=== PATIENT | female | born 1965 | race Caucasian/White ===

== ENCOUNTER 2020-12-04 14:54 | Emergency (ER) ==
[2020-12-04] MEDS ORDERED: Boostrix 0.5 ML (Tdap) VIAL ONE (16:06)
[2020-12-04] MEDS ORDERED: Lidocaine 1% 20 ML MDV ONE (16:06)
[2020-12-04] MEDS ORDERED: Oseltamivir 75 MG CAP ONE (16:06)
[2020-12-04] MEDS ORDERED: Bacitracin 1 PK ONE (16:26)
--- NOTE | 2020-12-04 17:31 | RAD ---
RIGHT THUMB THREE VIEWS: 12/04/20 HISTORY: Right thumb injury. FINDINGS: Some mild arthritic changes present. There is no signs of fracture or dislocation. IMPRESSION: No evidence of fracture. POS: [facility]
== END 2020-12-04 17:15 | disposition home or self-care (01) ==
LOC: MADERS 14:54
DX: S61.011A Laceration without foreign body of right thumb without damage to nail, initial encounter (principal); Z79.899 Other long term (current) drug therapy; W23.0XXA Caught, crushed, jammed, or pinched between moving objects, initial encounter
CPT/HCPCS: 12002; 90471; 90715

== ENCOUNTER 2020-12-11 10:58 | Emergency (ER) | payer OTHER | END 2020-12-11 11:39 | disposition home or self-care (01) | LOC: MADERS 10:58 | DX: S67.01XD Crushing injury of right thumb, subsequent encounter (principal) | CPT/HCPCS: 99283 ==